=== PATIENT | male | born 1940 | race Caucasian/White ===

== ENCOUNTER → 2024-02-17 04:45 | Outpatient (REF) | payer MEDICARE, SELFPAY ==
[2024-02-17 07:49] LABS: Absolute Lymphocyte Count 1.04 X10^3/uL (0.83-4.51); Absolute Neutrophil Count 10.1 X10^3/uL (2.0-7.7); Basophil# 0.02 X10^3/uL; Basophil% 0.2 % (0-1); Eosinophil# 0.01 X10^3/uL; Eosinophils% 0.1 % (0-5); Hematocrit 39.1 % (40-54); Hemoglobin 12.7 g/dL (13.0-16.5); Lymphocyte # 1.04 X10^3/ul (0.83-4.51); Lymphocyte % 8.8 % (19-41); Mean Corp Hgb Conc 32.5 g/dL (32-36); Mean Corpuscular Hgb 29.7 pg (27.0-32.0); Mean Corpuscular Volume 91.6 fL (80-94); Monocyte# 0.58 X10^3/uL; Monocyte% 4.9 % (0-10); NRBC Flagged by Analyzer 0 % (0-5); Neutrophil # 10.14 X10^3/uL (2.7-7.7); Neutrophil % 85.2 % (47-70); Platelet Count 190 K/mm3 (150-450); RBC Distribution Width CV 14.5 % (11.6-14.6); RBC Distribution Width SD 48.7 fl (35.1-43.9); Red Blood Count 4.27 M/mm3 (4.6-6.2); White Blood Count 11.9 K/mm3 (4.4-11.0)
[2024-02-17 08:01] LABS: Vitamin B12 864 pg/mL (211-911); Vitamin D,25 Hydroxy 102.6 ng/mL
[2024-02-17 08:16] LABS: Anion Gap 7 (5-15); BUN 27 mg/dL (7-18); BUN/Creat Ratio 19.4 RATIO (10-20); Calcium,Total 9.3 mg/dL (8.5-10.1); Chloride 109 mmol/L (98-107); Creatinine, Serum 1.39 mg/dL (0.70-1.30); EST Glomerular Filtration Rate 52 mL/min (>60); Est Glom Filt Rate - Afr Amer 63 mL/min (>60); Glucose 75 mg/dL (74-106); Potassium 3.9 mmol/L (3.5-5.1); Sodium Level 138 mmol/L (136-145); Thyroid Stim Hormone (TSH) 1.92 uIU/mL (0.358-3.74)
[2024-02-17 09:19] LABS: Hemoglobin A1c 5.5 % (3.8-5.6)
== END ==
LOC: OLS.SW 04:45
PROVIDERS: PCP Internal Medicine; Referring Provider Internal Medicine; Visit Provider Internal Medicine
DX: N17.9 Acute kidney failure, unspecified (principal); M47.816 Spondylosis without myelopathy or radiculopathy, lumbar region; G20.A1 Parkinson's disease without dyskinesia, without mention of fluctuations; R29.6 Repeated falls; I10 Essential (primary) hypertension; E11.9 Type 2 diabetes mellitus without complications
CPT/HCPCS: 36415; 80048; 82306; 82607; 83036; 83735; 84443; 85025

== ENCOUNTER → 2024-02-24 | Outpatient (REF) | payer MEDICARE, SELFPAY ==
[2024-02-24 08:58] LABS: Hematocrit 37.2 % (40-54); Hemoglobin 11.9 g/dL (13.0-16.5); Mean Corpuscular Hgb 29.7 pg (27.0-32.0); Mean Corpuscular Volume 92.8 fL (80-94); Mean Platelet Vol. 11.9 fl (6.2-12.0); Platelet Count 234 K/mm3 (150-450); RBC Distribution Width CV 14.2 % (11.6-14.6); RBC Distribution Width SD 48.7 fl (35.1-43.9); Red Blood Count 4.01 M/mm3 (4.6-6.2); White Blood Count 15.7 K/mm3 (4.4-11.0)
[2024-02-24 09:24] LABS: Anion Gap 6 (5-15); BUN 34 mg/dL (7-18); BUN/Creat Ratio 27.2 RATIO (10-20); Calcium,Total 9.4 mg/dL (8.5-10.1); Chloride 107 mmol/L (98-107); Creatinine, Serum 1.25 mg/dL (0.70-1.30); EST Glomerular Filtration Rate 59 mL/min (>60); Est Glom Filt Rate - Afr Amer 71 mL/min (>60); Glucose 101 mg/dL (74-106); Magnesium 2.4 mg/dL (1.6-2.6); Potassium 4.5 mmol/L (3.5-5.1); Sodium Level 137 mmol/L (136-145)
[2024-02-25 04:29] LABS: Uric Acid 7.1 mg/dL (3.5-7.2)
== END ==
LOC: OLS.SW 04:25
PROVIDERS: Referring Provider Internal Medicine; Visit Provider Internal Medicine
DX: I12.9 Hypertensive chronic kidney disease with stage 1 through stage 4 chronic kidney disease, or unspecified chronic kidney disease (principal); G20.A1 Parkinson's disease without dyskinesia, without mention of fluctuations; E11.22 Type 2 diabetes mellitus with diabetic chronic kidney disease; N18.30 Chronic kidney disease, stage 3 unspecified; E78.5 Hyperlipidemia, unspecified; G25.0 Essential tremor; N40.1 Benign prostatic hyperplasia with lower urinary tract symptoms; M47.816 Spondylosis without myelopathy or radiculopathy, lumbar region; M54.17 Radiculopathy, lumbosacral region
CPT/HCPCS: 36415; 80048; 83735; 84550; 85027; 86140